=== PATIENT | male | born 1940 | race Caucasian/White ===

== ENCOUNTER 2017-11-06 12:36 | Outpatient (CLI) | payer MEDICARE ==
--- NOTE | 2017-11-06 13:25 | XRay Report ---
RIGHT TIBIA/FIBULA: History: Pain in right leg No comparison at this facility. There is been previous internal fixation of a comminuted distal right tibial fracture with metal plate and screws. Fracture lines remain evident although alignment is anatomic. The fibula is intact. Normal articulation at the knee and ankle. There is moderate diffuse soft tissue swelling. IMPRESSION: Internally fixated distal tibial fracture as described.
== END 2017-11-06 12:37 | disposition home or self-care (01) ==
LOC: XRAY 12:36
PROVIDERS: ATTEND Orthopaedic Surgery
DX: S82.301A Unspecified fracture of lower end of right tibia, initial encounter for closed fracture (principal); X58.XXXA Exposure to other specified factors, initial encounter; Y93.89 Activity, other specified; Y92.89 Other specified places as the place of occurrence of the external cause; Y99.8 Other external cause status